=== PATIENT | male | born 1970 | race Caucasian/White ===

== ENCOUNTER 2020-05-30 09:28 | Emergency (ER) | payer OTHER, SELFPAY ==
[2020-05-30 09:38] VITALS: BP 132/97; PULSE 80; RESP 16; TEMP 37.1; O2SAT 98; BMI 27.9
--- NOTE | 2020-05-30 10:24 | DI.CT.S_ITS ---
PROCEDURE: CT ABDOMEN PELVIS W CON INDICATIONS: RLQ and RUQ abd pain TECHNIQUE: After the administration of intravenous contrast, 5 mm thick sections acquired from the diaphragm to the symphysis. 5 mm coronal and sagittal reformats were acquired. For radiation dose reduction, the following was used: automated exposure control, adjustment of mA and/or kV according to patient size. COMPARISON: None. FINDINGS: Image quality: Excellent. ABDOMEN: Lung bases: Mild dependent atelectasis is seen in the lung bases. Heart size is normal. Solid organs: Liver is normal in size and enhancement. Gallbladder appears normal Biliary system is non dilated. Pancreas enhances normally. Spleen is normal in size and enhancement. No adrenal nodules. Kidneys demonstrate normal size and enhancement, without hydronephrosis. Multiple small nonobstructing calculi are seen in the left kidney, the largest of which measures up to 5 mm. Peritoneum and bowel: There is diffuse bowel wall thickening throughout the colon, consistent with colitis. Superimpose scattered diverticula are noted. The appendix is upper limits of normal in size without an appendicolith or surrounding inflammatory fat stranding. No signs of bowel obstruction. There is no ascites or pneumoperitoneum. Nodes and vessels: No retroperitoneal or mesenteric adenopathy by size criteria. Aorta and inferior vena cava are normal in size. Miscellaneous: No ventral hernias. PELVIS: Genitourinary: Bladder wall thickness is normal. Miscellaneous: No inguinal hernias or adenopathy. Bones: No suspicious bony lesions. No vertebral body compression fractures. IMPRESSION: 1. Diffuse bowel wall thickening throughout the colon is consistent with a nonspecific colitis. No signs of bowel obstruction. 2. Multiple nonobstructing left renal calculi measuring up to 5 mm. No hydronephrosis. Dictated by: Israel Kaufman M.D. on 05/30/2020 at 11:37 Approved by: Israel Kaufman M.D. on 05/30/2020 at 11:43
[2020-05-30 10:51] LABS: Add Manual Diff / Slide Review NO; Basophils Absolute Auto 100 /uL (0-100); Basophils Percent Auto 0.7 % (0-2); Eosinophils Absolute Auto 300 /uL (0-450); Eosinophils Percent Auto 1.9 % (2-4); Hematocrit 42.6 % (41-53); Hemoglobin 14.2 g/dL (13.5-17.5); Lymphocytes Absolute Auto 1700 /uL (1100-4500); Lymphocytes Percent Auto 12.8 % (25-40); Mean Corpuscular HGB Conc 33.5 % (30-36); Mean Corpuscular Hemoglobin 27.8 PG (26-34); Mean Corpuscular Volume 83.2 fL (80-100); Monocytes Absolute Auto 700 /uL (0-900); Monocytes Percent Auto 5.2 % (3-14); Neutrophils Absolute Auto 10800 /uL (1500-7000); Neutrophils Percent Auto 79.4 % (50-75); Platelet Count 391 X10^3/uL (150-400); Red Blood Cell Count 5.12 X10^6/uL (4.5-5.9); Red Cell Distribution Width 13.3 % (11.6-14.8); White Blood Cell Count 13.6 X10^3/uL (4.5-11.0)
--- NOTE | 2020-05-30 10:51 | ED.ABDPAIN ---
HPI - Abdominal Pain <JAKOB Garcia - Last Filed: 05/30/20 15:17> General Chief Complaint: Abdominal Pain Stated Complaint: c diff infection Time Seen by Provider: 05/30/20 10:14 History of Present Illness HPI narrative: 49-year-old male with a history of diverticulitis and C diff, presents to the emergency department complaining of left lower and right upper quadrant pain. Patient was seen and evaluated by the flight surgeon as well as seen at [facility] last month, diagnosed with diverticulitis on 04/21/2020 and placed on Cipro. Patient then developed C diff and was placed on vancomycin for 10 days. He finished the last dose on 05/23/2019, about a week ago. Patient was feeling well until last evening when he developed significant cramping and diarrhea. He reports some mucus in diarrhea without blood. Denies any nausea or vomiting. Patient denies any chest pain, fevers, dizziness, cough, shortness of breath, or any other concerns. Related Data Previous Rx's Medication Instructions Recorded dicyclomine 20 mg PO QID #30 tab 05/30/20 vancomycin 125 mg PO QID 14 Days #56 cap 05/30/20 Review of Systems <JAKOB Garcia - Last Filed: 05/30/20 15:17> Review of Systems Narrative: REVIEW OF SYSTEMS: GENERAL: Denies fever or chills. HENT: No head trauma. CARDIOVASCULAR: No chest pain. RESPIRATORY: No shortness of breath or cough. GASTROINTESTINAL: Complains of abdominal pain, see HPI GENITOURINARY: No flank pain. MUSCULOSKELETAL: No pain. INTEGUMENTARY: No rash. NEURO: No numbness or tingling. Patient History <JAKOB Garcia - Last Filed: 05/30/20 15:17> Medical History Diverticulitis Exam <JAKOB Garcia - Last Filed: 05/30/20 15:17> Initial Vital Signs Initial Vital Signs: Vital Signs Temperature 98.7 F 05/30/20 09:38 Pulse Rate 80 05/30/20 09:38 Respiratory Rate 16 05/30/20 09:38 Blood Pressure 132/97 H 05/30/20 09:38 Pulse Oximetry 98 05/30/20 09:38 PHYSICAL EXAMINATION: GENERAL: Awake and alert. HENT: Normocephalic, atraumatic. EYES: Conjunctiva pink, sclera white, no periorbital swelling. CARDIOVASCULAR: S1 and S2 sounds normal. Regular rate and rhythm, no murmurs, clicks, or bruits. No pedal edema. RESPIRATORY: Normal respiratory rate, trachea midline, airway patent. No stridor, nasal flaring or accessory muscle use. Lungs are clear in all melendez without wheeze, rhonchi, or crackles. GASTROINTESTINAL: Bowel sounds normoactive. Abdomen is soft, left lower quadrant and right upper quadrant tenderness with palpation. Patient has visible pain with cramping. No organomegaly, no palpable masses. GENITALURINARY: No flank tenderness. MUSCULOSKELETAL: Normal gait and coordination. Equal tone and mass bilaterally. EXTREMITIES: CMS intact, no pedal edema. SKIN: Warm, dry, soft, appropriate color for ethnicity. No lesions, rashes, or wounds to visualized areas. NEURO: Alert and Oriented X 3. Good coordination. No ataxia, or sensory deficits, or cognitive issues. PSYCH: Appropriate affect and mood. <Gaby Woodward DO - Last Filed: 05/31/20 07:50> Initial Vital Signs Initial Vital Signs: Vital Signs Temperature 98.7 F 05/30/20 09:38 Pulse Rate 80 05/30/20 09:38 Respiratory Rate 16 05/30/20 09:38 Blood Pressure 132/97 H 05/30/20 09:38 Pulse Oximetry 98 05/30/20 09:38 Course <JAKOB Garcia - Last Filed: 05/30/20 15:17> Course Course Narrative: 1100: Orders placed for CT and laboratory work given prolonged duration of symptoms and recurrence of symptoms. Patient given Toradol and IV fluids for comfort. Orders Ordered: Discontinued Medications Sodium Chloride (Normal Saline 0.9%) 500 mls @ 1,000 mls/hr IV BOLUS ONE Stop: 05/30/20 10:51 Last Infusion: 05/30/20 11:59 Dose: 0 mls/hr Documented by: Admin: 05/30/20 10:52 Dose: 1,000 mls/hr Documented by: ANDREA Ketorolac Tromethamine (Ketorolac 60 Mg/2 Ml Vial) 30 mg IV NOW ONE Stop: 05/30/20 10:23 Last Admin: 05/30/20 10:52 Dose: 30 mg Documented by: ANDREA Vital Signs Vital signs: Vital Signs - 8 hr 05/30/20 09:38 05/30/20 12:43 Temperature 98.7 F Pulse Rate 80 84 Respiratory Rate 16 Blood Pressure 132/97 H 129/94 H Pulse Oximetry 98 100 <Gaby Woodward DO - Last Filed: 05/31/20 07:50> Orders Ordered: Discontinued Medications Sodium Chloride (Normal Saline 0.9%) 500 mls @ 1,000 mls/hr IV BOLUS ONE Stop: 05/30/20 10:51 Last Infusion: 05/30/20 11:59 Dose: 0 mls/hr Documented by: Admin: 05/30/20 10:52 Dose: 1,000 mls/hr Documented by: ANDREA Ketorolac Tromethamine (Ketorolac 60 Mg/2 Ml Vial) 30 mg IV NOW ONE Stop: 05/30/20 10:23 Last Admin: 05/30/20 10:52 Dose: 30 mg Documented by: ANDREA Vital Signs Vital signs: Vital Signs - 8 hr 05/30/20 09:38 05/30/20 12:43 Temperature 98.7 F Pulse Rate 80 84 Respiratory Rate 16 Blood Pressure 132/97 H 129/94 H Pulse Oximetry 98 100 MDM - Abdominal Pain <JAKOB Garcia - Last Filed: 05/30/20 15:17> Medical Records Attestation: I reviewed the patient's medical records. Lab Data Attestation: I reviewed the patient's lab results. Result diagrams: 05/30/20 10:46 05/30/20 10:46 Labs: Lab Results 05/30/20 05/30/20 05/30/20 Range/Units 10:46 10:46 12:38 WBC 13.6 H (4.5-11.0) X10^3/uL RBC 5.12 (4.5-5.9) X10^6/uL Hgb 14.2 (13.5-17.5) g/dL Hct 42.6 (41-53) % MCV 83.2 (80-100) fL MCH 27.8 (26-34) PG MCHC 33.5 (30-36) % RDW 13.3 (11.6-14.8) % Plt Count 391 (150-400) X10^3/uL Neut % (Auto) 79.4 H (50-75) % Lymph % (Auto) 12.8 L (25-40) % Brantley % (Auto) 5.2 (3-14) % Eos % (Auto) 1.9 L (2-4) % Baso % (Auto) 0.7 (0-2) % Neut # (Auto) 82176 H (1827-3039) /uL Lymph # (Auto) 1700 (3288-3754) /uL Brantley # (Auto) 700 (0-900) /uL Eos # (Auto) 300 (0-450) /uL Baso # (Auto) 100 (0-100) /uL Sodium 136 L (137-145) mmol/L Potassium 4.0 (3.4-5.1) mmol/L Chloride 105 (98-107) mmol/L Carbon Dioxide 29 (22-32) mmol/L BUN 14 (9-20) mg/dL Creatinine 1.03 (0.66-1.25) mg/dL Estimated GFR > 60.0 (>60) mL/min BUN/Creatinine Ratio 13.6 (6-22) Glucose 95 (70-100) mg/dL Calcium 9.0 (8.4-10.2) mg/dL Total Bilirubin 0.4 (0.2-1.3) mg/dL AST 26 (17-59) IU/L ALT 34 (<50) IU/L Alkaline Phosphatase 65 (38-126) U/L Total Protein 6.4 (6.3-8.2) g/dL Albumin 3.9 (3.5-5.0) g/dL Globulin 2.5 (1.7-4.1) g/dL Albumin/Globulin Ratio 1.6 (1.0-2.8) Lipase 78 (23-300) U/L Stl C. cayetanensis PCR Cancelled Stool Rotavirus (PCR) Cancelled Stool Adenovirus (PCR) Cancelled Stool Astrovirus (PCR) Cancelled Stool Cryptosporidium PCR Cancelled Stl E.coli Shiga Tox PCR Cancelled St Sh/Enteroin Ecoli PCR Cancelled Stool E coli O157 PCR Cancelled Stl Enterotoxigenic E PCR Cancelled Stool EPEC (PCR) Cancelled Stl E. histolytica PCR Cancelled Stool Giardia Lamblia PCR Cancelled Stool Sapovirus (PCR) Cancelled Stl P. shigelloides PCR Cancelled St Y.enterocolitica PCR Cancelled Stool Vibrio (PCR) Cancelled Stl Vibrio cholerae PCR Cancelled Stl Enteroaggr Ecoli PCR Cancelled Stl Norovirus GI/GII PCR Cancelled Campylobacter (PCR) Cancelled C. difficile Tox (PCR) Cancelled Salmonella (PCR) Cancelled Imaging Data CT scan - abdomen/pelvis: Radiologist's Impression: [address] [id number] Scan ReportSigned Patient: Marco Sharma AMR#: [id number]: 1970Acct:[id number]/Sex: 49 / MDate of Service: 05/30/20Loc: EDAccession Number: [id number] Procedure: CT abdomen pelvis w con Ordering Provider: Maggy Renee PROCEDURE: CT ABDOMEN PELVIS W CON INDICATIONS: RLQ and RUQ abd pain TECHNIQUE: After the administration of intravenous contrast, 5 mm thick sections acquired from the diaphragm to the symphysis. 5 mm coronal and sagittal reformats were acquired. For radiation dose reduction, the following was used: automated exposure control, adjustment of mA and/or kV according to patient size. COMPARISON: None. FINDINGS: Image quality: Excellent. ABDOMEN: Lung bases: Mild dependent atelectasis is seen in the lung bases. Heart size is normal. Solid organs: Liver is normal in size and enhancement. Gallbladder appears normal Biliary system is non dilated. Pancreas enhances normally. Spleen is normal in size and enhancement. No adrenal nodules. Kidneys demonstrate normal size and enhancement, without hydronephrosis. Multiple small nonobstructing calculi are seen in the left kidney, the largest of which measures up to 5 mm. Peritoneum and bowel: There is diffuse bowel wall thickening throughout the colon, consistent with colitis. Superimpose scattered diverticula are noted. The appendix is upper limits of normal in size without an appendicolith or surrounding inflammatory fat stranding. No signs of bowel obstruction. There is no ascites or pneumoperitoneum. Nodes and vessels: No retroperitoneal or mesenteric adenopathy by size criteria. Aorta and inferior vena cava are normal in size. Miscellaneous: No ventral hernias. PELVIS: Genitourinary: Bladder wall thickness is normal. Miscellaneous: No inguinal hernias or adenopathy. Bones: No suspicious bony lesions. No vertebral body compression fractures. IMPRESSION: 1. Diffuse bowel wall thickening throughout the colon is consistent with a nonspecific colitis. No signs of bowel obstruction. 2. Multiple nonobstructing left renal calculi measuring up to 5 mm. No hydronephrosis. Dictated by: Israel Kaufman M.D. on 05/30/2020 at 11:37 Approved by: Israel Kaufman M.D. on 05/30/2020 at 11:43 [facility] Narrative Medical decision making narrative: 49-year-old male presenting to the emergency department for abdominal cramping, pain, and diarrhea. He recently was treated for diverticulitis and then developed C diff which she was treated for, antibiotics ended approximately week ago. Patient had diffuse colitis seen on CT. Laboratory work showed a very mild elevated white blood cell count of 13, he was nontoxic and afebrile. I initially discussed with patient holding off on antibiotics due to lack of significant infection and history of C diff in the past. Patient was able to give a stool sample prior to discharge. Stool sample little resulted positive for C diff infection. I placed a call to patient, prescribed vancomycin for the 1st 14 days. I explained that he may need to continue antibiotics for a few further weeks and that follow-up was very important. He states he will be following up with the [facility]. Patient able to eat and drink, his pain improved after administration of Toradol. Return precautions given for new or worsening symptoms. He agreed to plan of care verbalized understanding. <Gaby Woodward, DO - Last Filed: 05/31/20 07:50> Lab Data Labs: Lab Results 05/30/20 05/30/20 05/30/20 Range/Units 10:46 10:46 12:38 WBC 13.6 H (4.5-11.0) X10^3/uL RBC 5.12 (4.5-5.9) X10^6/uL Hgb 14.2 (13.5-17.5) g/dL Hct 42.6 (41-53) % MCV 83.2 (80-100) fL MCH 27.8 (26-34) PG MCHC 33.5 (30-36) % RDW 13.3 (11.6-14.8) % Plt Count 391 (150-400) X10^3/uL Neut % (Auto) 79.4 H (50-75) % Lymph % (Auto) 12.8 L (25-40) % Brantley % (Auto) 5.2 (3-14) % Eos % (Auto) 1.9 L (2-4) % Baso % (Auto) 0.7 (0-2) % Neut # (Auto) 96401 H (2282-2377) /uL Lymph # (Auto) 1700 (1330-1893) /uL Brantley # (Auto) 700 (0-900) /uL Eos # (Auto) 300 (0-450) /uL Baso # (Auto) 100 (0-100) /uL Sodium 136 L (137-145) mmol/L Potassium 4.0 (3.4-5.1) mmol/L Chloride 105 (98-107) mmol/L Carbon Dioxide 29 (22-32) mmol/L BUN 14 (9-20) mg/dL Creatinine 1.03 (0.66-1.25) mg/dL Estimated GFR > 60.0 (>60) mL/min BUN/Creatinine Ratio 13.6 (6-22) Glucose 95 (70-100) mg/dL Calcium 9.0 (8.4-10.2) mg/dL Total Bilirubin 0.4 (0.2-1.3) mg/dL AST 26 (17-59) IU/L ALT 34 (<50) IU/L Alkaline Phosphatase 65 (38-126) U/L Total Protein 6.4 (6.3-8.2) g/dL Albumin 3.9 (3.5-5.0) g/dL Globulin 2.5 (1.7-4.1) g/dL Albumin/Globulin Ratio 1.6 (1.0-2.8) Lipase 78 (23-300) U/L Stl C. cayetanensis PCR Cancelled Stool Rotavirus (PCR) Cancelled Stool Adenovirus (PCR) Cancelled Stool Astrovirus (PCR) Cancelled Stool Cryptosporidium PCR Cancelled Stl E.coli Shiga Tox PCR Cancelled St Sh/Enteroin Ecoli PCR Cancelled Stool E coli O157 PCR Cancelled Stl Enterotoxigenic E PCR Cancelled Stool EPEC (PCR) Cancelled Stl E. histolytica PCR Cancelled Stool Giardia Lamblia PCR Cancelled Stool Sapovirus (PCR) Cancelled Stl P. shigelloides PCR Cancelled St Y.enterocolitica PCR Cancelled Stool Vibrio (PCR) Cancelled Stl Vibrio cholerae PCR Cancelled Stl Enteroaggr Ecoli PCR Cancelled Stl Norovirus GI/GII PCR Cancelled Campylobacter (PCR) Cancelled C. difficile Tox (PCR) Cancelled Salmonella (PCR) Cancelled Discharge Plan Departure Patient Disposition: Home Clinical Impression: Colitis Instructions: DI for Colitis Activity Restrictions/Additional Instructions: Thank you for entrusting me with your care today. As discussed, your CT shows generalized colitis. We are unsure at this time if it is caused by infection or just inflammation. I hesitate to start you on antibiotics at this time due to unnecessary antibiotics increasing your risk for C diff especially given previous C diff infection, no abscess, diverticulitis, or perforation noted on CT. I do not recommend steroids or prednisone at this time as this could also increase your risk for GI infection. I highly recommend a bland diet with plenty of fluids, monitor symptoms over the next 24-48 hours. It is possible that this could develop into an infection, if your symptoms worsen I recommend being seen for follow-up and discuss the indications for antibiotics at this point. Your white count was very slightly elevated which could indicate inflammation versus infection, WBC of 13. Return emergency department for any new or worsening symptoms especially high fevers, severe pain, uncontrollable vomiting, or any other concerns. Prescriptions: New dicyclomine 20 mg tablet 20 mg PO QID Qty: 30 RF: 0 vancomycin 125 mg capsule 125 mg PO QID 14 Days Qty: 56 RF: 0 <Gaby Woodward, - Last Filed: 05/31/20 07:50> [facility] Attending Zhanna Attestation: I was immediately available in the department for consultation. Documentation has been reviewed. I agree with assessment and plan.
[2020-05-30] MEDS: SODIUM CHLORIDE 0.9% 500 ML 1000 ML IV (10:52)
[2020-05-30] MEDS: KETOROLAC 60 MG/2 ML VIAL 30 MG IV (10:52)
[2020-05-30 11:06] LABS: Alanine Aminotransferase 34 IU/L (<50); Albumin 3.9 g/dL (3.5-5.0); Albumin Globulin Ratio 1.6 (1.0-2.8); Alkaline Phosphatase 65 U/L (38-126); Aspartate Aminotransferase 26 IU/L (17-59); BUN Creatinine Ratio 13.6 (6-22); Bilirubin Total 0.4 mg/dL (0.2-1.3); Blood Urea Nitrogen 14 mg/dL (9-20); Carbon Dioxide 29 mmol/L (22-32); Chloride 105 mmol/L (98-107); Estimated Glomerular Filt Rate > 60.0 mL/min (>60); Globulin 2.5 g/dL (1.7-4.1); Glucose 95 mg/dL (70-100); HEMOLYSIS < 15 (0-50); Lipase 78 U/L (23-300); Sodium 136 mmol/L (137-145); Total Protein 6.4 g/dL (6.3-8.2)
[2020-05-30 12:43] VITALS: BP 129/94; PULSE 84; O2SAT 100
[2020-05-31 16:40] LABS: C difficie Toxins A and B, EIA Positive (Negative)
== END 2020-05-30 12:44 | disposition home or self-care (01) ==
PROVIDERS: Emergency Provider Nurse Practitioner
DX: K52.9 Noninfective gastroenteritis and colitis, unspecified (principal); Z87.19 Personal history of other diseases of the digestive system; D72.829 Elevated white blood cell count, unspecified
CPT/HCPCS: 36415; 74177; 80053; 83690; 85025; 87507; 96361; 96374; 99283; 99284; J1885; Q9967

== ENCOUNTER 2020-07-16 11:20 | Day surgery (SDC) | payer OTHER, SELFPAY ==
[2020-07-16 12:09] LABS: COVID19 -Nasal RAPID Negative (Negative)
[2020-07-16] MEDS: SODIUM CHLORIDE 0.9% 1,000 ML 100 ML IV (12:56)
[2020-07-16 12:57] VITALS: BP 118/86; PULSE 73; RESP 16; TEMP 36.2; O2SAT 100; BMI 27.4
--- NOTE | 2020-07-16 13:58 | P.OP.ENDO_ITS ---
Operative Date/Time/Diagnoses Date of procedure: 07/16/20 Pre-op diagnosis: See indication and findings Procedure & Clinicians Study performed: Colonoscopy Same procedure as scheduled: Yes Indications: Screening, post history of diverticulitis and subsequent C difficile, resolved Surgeon: Flaco Biggs Procedure Notes Procedure in detail: After informed consent was obtained patient was placed in left lateral decubitus position. The video colonoscope was introduced the rectum slowly advanced cecum. The IC valve was identified and intubated. On slow withdrawal mucosa was carefully examined. Preparation was good. The scope was removed. The patient tolerated procedure well. Blood loss none Complications none Sedation Total sedation time 21 minutes Versed 8 mg fentanyl 150 mg IV titration Findings 1. Subtle pattern of erythema in a patchy fashion throughout the colon. No rot ations or ulcerations. Biopsies taken to rule out microscopic colitis. 2. Normal terminal ileum Will go over pathology with the patient once and returns and hopefully this will provide some answers.
--- NOTE | 2020-07-16 13:58 | PM.PREOP ---
Pre-operative Note COVID-19 COVID-19 status: Negative (Two) Interval Note History & Physical reviewed/Exam performed by Physician: Yes Changes to H&P: No ASA Class (for procedural sedation): II
[2020-07-16] MEDS: ONDANSETRON 4 MG/2 ML INJ IV (14:30)
[2020-07-16] MEDS: MIDAZOLAM 5 MG/5 ML VIAL IV (14:41)
[2020-07-16] MEDS: fentaNYL 250 MCG/5 ML INJ IV (14:41)
--- NOTE | 2020-07-16 14:55 | P.OP.ENDO_ITS ---
Operative Date/Time/Diagnoses Date of procedure: 07/16/20 Pre-op diagnosis: See indication and findings Procedure & Clinicians Study performed: Colonoscopy Same procedure as scheduled: Yes Indications: Screening status post acute diverticulitis and subsequent C difficile infection, resolved Surgeon: Flaco Biggs Procedure Notes Procedure in detail: After informed consent was obtained the patient placed left lateral decubitus position. The video scope was placed into the rectum slowly a dvanced to the cecum. On slow withdrawal mucosa was carefully examined. Preparation was good. The scope was removed. The patient tolerated procedure well. Blood loss none Complications none Sedation Total sedation time 24 minutes Versed 7 mg fentanyl 150 micro g IV titration. Zofran 4 mg also given preprocedure. Findings 1. Significant tortuosity to the sigmoid colon in particular with diverticula throughout. 2. Otherwise negative colonoscopy to cecum Patient will need follow-up colonoscopy in 10 years.
[2020-07-16 15:08] VITALS: BP 95/58; PULSE 67; RESP 16; O2SAT 94
[2020-07-16 15:13] VITALS: BP 113/72; PULSE 69; RESP 14; TEMP 36.5; O2SAT 96
[2020-07-16 15:17] VITALS: BP 104/73; PULSE 73; RESP 14; TEMP 36.3; O2SAT 94
[2020-07-16 15:28] VITALS: BP 97/69; PULSE 65; RESP 16; TEMP 36.3; O2SAT 96
[2020-07-16 15:32] VITALS: BP 110/66
== END 2020-07-16 15:46 | disposition home or self-care (01) ==
PROVIDERS: PCP Internal Medicine Gastroenterology; Referring Provider Internal Medicine Gastroenterology; Visit Provider Internal Medicine Gastroenterology
PROC: 0DJD8ZZ Inspection of Lower Intestinal Tract, Via Natural or Artificial Opening Endoscopic (ICD-10-PCS; CPT 45378; principal; 2020-07-16 14:30)
DX: Z12.11 Encounter for screening for malignant neoplasm of colon (principal); Z20.822 Contact with and (suspected) exposure to COVID-19; Z87.19 Personal history of other diseases of the digestive system; K21.9 Gastro-esophageal reflux disease without esophagitis
CPT/HCPCS: 45378; 87635; J2250; J2405; J3010